=== PATIENT | female | born 2000 | race Caucasian/White ===

== ENCOUNTER 2021-10-24 03:07 | Emergency (ER) | payer SELFPAY ==
[~2021-10-24] VITALS: Ht 170.2 cm; Wt 68.2 kg
[2021-10-24 03:14] VITALS: TEMP 97.8
[2021-10-24 03:24] LABS: BASO % 0.2 % (0.0-2.0); EOS # 0.2 K/mm3 (0.0-0.7); EOS % 1.5 % (0.0-4.0); GRAN # 8.2 K/mm3 (1.4-6.5); GRAN % 61.7 % (42.2-75.2); HEMATOCRIT 40.4 % (37.0-47.0); HEMOGLOBIN 13.6 g/dl (12.5-16.0); LYMPH % 30.3 % (20.0-51.0); MEAN CELL VOLUME 88 fl (80.0-100.0); MEAN CORPUSCULAR HEMOGLOBIN 30 pg (27-31); MEAN CORPUSCULAR HGB CONC 34 g/dl (33.0-37.0); MEAN PLATELET VOLUME 10.6 fl (7.4-10.4); MONO # 0.8 K/mm3 (0.1-0.6); MONO % 5.9 % (1.7-9.3); PLATELET COUNT 225 K/mm3 (130-400); RED BLOOD COUNT 4.58 M/mm3 (4.10-5.30); REDCELL DISTRIBUTION WIDTH-CV 13.2 % (11.5-14.5)
[2021-10-24 03:43] LABS: BILIRUBIN,TOTAL 0.3 mg/dL (0.2-1.2); CALCIUM 9.3 mg/dL (8.4-10.2); CREATININE, serum 0.68 mg/dL (0.57-1.11); POTASSIUM 3.5 mmol/L (3.5-4.5); TOTAL PROTEIN 6.9 gm/dL (6.2-8.1)
[2021-10-24] MEDS ORDERED: VENTOLIN0.09 MG IH (03:57)
[2021-10-24 04:40] LABS: COLLECTION METHOD CLEAN CATCH
[2021-10-24 04:48] LABS: PH 7 (5-8); SQUAMOUS EPITHELIAL 0-2 /hpf (0-10); URINE APPEARANCE Clear (CLEAR/HAZY); URINE BACTERIA None Seen /hpf (NONE SEEN); URINE BILIRUBIN Negative (NEGATIVE); URINE BLOOD Negative (NEGATIVE); URINE COLOR Straw (YELLOW); URINE GLUCOSE Negative (NEGATIVE); URINE KETONE Negative (NEGATIVE); URINE LEUKOCYTE ESTERASE Negative (NEGATIVE); URINE NITRATE Negative (NEGATIVE); URINE PROTEIN(semi-quant) Negative (NEGATIVE); URINE RBC 0-2 /hpf (0-2); URINE UROBILINOGEN Negative (NEGATIVE)
[2021-10-24 04:48] LABS: C-REACTIVE PROTEIN 0.11 mg/dL (0.00-0.50)
[2021-10-24 05:01] VITALS: BP 108/73; PULSE 80
[2021-10-24] MEDS ORDERED: NORCO 325 MG-51 TAB PO (05:11)
[2021-10-24] MEDS ORDERED: FLEXERIL 1010 MG/TAB PO (05:11)
== END 2021-10-24 05:25 | disposition home or self-care (01) ==
LOC: COL.ER 03:07
PROVIDERS: Emergency Medicine
DX: R10.11 Right upper quadrant pain (principal); D72.829 Elevated white blood cell count, unspecified; F17.210 Nicotine dependence, cigarettes, uncomplicated; Z32.02 Encounter for pregnancy test, result negative; Z28.310 Unvaccinated for COVID-19
CPT/HCPCS: J1885; J2060; J2405; J3010; J7030; Q9967

== ENCOUNTER 2021-10-29 23:48 | Emergency (ER) | payer SELFPAY ==
[~2021-10-29] VITALS: Ht 170.2 cm; Wt 68.2 kg
[~2021-10-29 23:48] MED LIST: FLEXERIL 1010 MG/TAB PO; NORCO 325 MG-51 TAB PO; VENTOLIN0.09 MG IH
[2021-10-29 23:56] VITALS: TEMP 98.7
[2021-10-30 01:20] LABS: BASO % 0.3 % (0.0-2.0); EOS # 0.2 K/mm3 (0.0-0.7); EOS % 1.6 % (0.0-4.0); GRAN # 8.4 K/mm3 (1.4-6.5); GRAN % 61.8 % (42.2-75.2); HEMATOCRIT 38.3 % (37.0-47.0); LYMPH # 3.9 K/mm3 (1.2-3.4); LYMPH % 28.5 % (20.0-51.0); MEAN CELL VOLUME 88 fl (80.0-100.0); MEAN CORPUSCULAR HEMOGLOBIN 30 pg (27-31); MEAN CORPUSCULAR HGB CONC 34 g/dl (33.0-37.0); MEAN PLATELET VOLUME 10.6 fl (7.4-10.4); MONO % 7.5 % (1.7-9.3); PLATELET COUNT 186 K/mm3 (130-400); RED BLOOD COUNT 4.34 M/mm3 (4.10-5.30); REDCELL DISTRIBUTION WIDTH-CV 13.2 % (11.5-14.5)
[2021-10-30 01:35] LABS: ANION GAP 13 mmol/L (7-16); BLOOD UREA NITROGEN 5 mg/dL (7-19); CALCIUM 8.7 mg/dL (8.4-10.2); CARBON DIOXIDE 19 mmol/L (22-29); CHLORIDE 111 mmol/L (98-107); CREATININE, serum 0.68 mg/dL (0.57-1.11); GLUCOSE 110 mg/dL (70-99); POTASSIUM 3.3 mmol/L (3.5-4.5); SODIUM 143 mmol/L (136-145)
[2021-10-30 01:44] LABS: TROPONIN-I < 0.010 ng/mL (0.00-0.033)
[2021-10-30 02:35] VITALS: BP 145/81; PULSE 85
== END 2021-10-30 02:35 | disposition home or self-care (01) ==
LOC: COL.ER 23:48
PROVIDERS: Emergency Medicine
DX: J45.901 Unspecified asthma with (acute) exacerbation (principal); D72.829 Elevated white blood cell count, unspecified; Z28.310 Unvaccinated for COVID-19
CPT/HCPCS: J8540

== ENCOUNTER 2021-11-07 23:50 | Emergency (ER) | payer SELFPAY ==
[~2021-11-07] VITALS: Ht 172.7 cm; Wt 68.2 kg
[2021-11-08 00:03] VITALS: TEMP 98
[2021-11-08 01:34] VITALS: BP 125/75; PULSE 71
== END 2021-11-08 01:37 | disposition home or self-care (01) ==
LOC: COL.ER 23:50
DX: S50.11XA Contusion of right forearm, initial encounter (principal); Z28.310 Unvaccinated for COVID-19; W23.1XXA Caught, crushed, jammed, or pinched between stationary objects, initial encounter

== ENCOUNTER 2021-11-13 00:03 | Emergency (ER) | payer SELFPAY ==
[~2021-11-13] VITALS: Ht 170.2 cm; Wt 68.2 kg
[2021-11-13 00:22] VITALS: TEMP 98.2
[2021-11-13 00:51] LABS: COLLECTION METHOD CLEAN CATCH
[2021-11-13 00:53] LABS: BASO # 0.1 K/mm3 (0.0-0.2); BASO % 0.3 % (0.0-2.0); EOS # 0.2 K/mm3 (0.0-0.7); EOS % 1.5 % (0.0-4.0); GRAN # 10.4 K/mm3 (1.4-6.5); GRAN % 66.5 % (42.2-75.2); HEMOGLOBIN 13.8 g/dl (12.5-16.0); LYMPH # 4.1 K/mm3 (1.2-3.4); LYMPH % 25.8 % (20.0-51.0); MEAN CELL VOLUME 91 fl (80.0-100.0); MEAN CORPUSCULAR HEMOGLOBIN 30 pg (27-31); MEAN CORPUSCULAR HGB CONC 33 g/dl (33.0-37.0); MEAN PLATELET VOLUME 10.4 fl (7.4-10.4); MONO # 0.9 K/mm3 (0.1-0.6); MONO % 5.5 % (1.7-9.3); PLATELET COUNT 229 K/mm3 (130-400); RED BLOOD COUNT 4.63 M/mm3 (4.10-5.30); REDCELL DISTRIBUTION WIDTH-CV 13.6 % (11.5-14.5)
[2021-11-13 00:58] LABS: MUCOUS Present (NOT PRESENT); PH 6 (5-8); SQUAMOUS EPITHELIAL None Seen /hpf (0-10); URINE APPEARANCE Clear (CLEAR/HAZY); URINE BACTERIA None Seen /hpf (NONE SEEN); URINE BLOOD 1+ (NEGATIVE); URINE COLOR Straw (YELLOW); URINE GLUCOSE Negative (NEGATIVE); URINE KETONE Negative (NEGATIVE); URINE NITRATE Negative (NEGATIVE); URINE PROTEIN(semi-quant) Negative (NEGATIVE); URINE UROBILINOGEN Negative (NEGATIVE)
[2021-11-13 01:10] LABS: ALANINE AMINOTRANSFERASE 15 U/L (0-55); ALKALINE PHOSPHATASE 67 U/L (40-150); ANION GAP 11 mmol/L (7-16); AST,SGOT 18 U/L (5-34); BILIRUBIN,TOTAL 0.2 mg/dL (0.2-1.2); BLOOD UREA NITROGEN 6 mg/dL (7-19); CALCIUM 8.7 mg/dL (8.4-10.2); CARBON DIOXIDE 18 mmol/L (22-29); CHLORIDE 116 mmol/L (98-107); CREATININE, serum 0.74 mg/dL (0.57-1.11); GLUCOSE 90 mg/dL (70-99); POTASSIUM 3.7 mmol/L (3.5-4.5); SODIUM 145 mmol/L (136-145)
[2021-11-13 01:17] LABS: ALCOHOL(ethanol),MEDICAL 88 mg/dL (0-10); TRICYCLIC ANTIDEPRESS URINE NEGATIVE
[2021-11-13 01:20] LABS: ACETAMINOPHEN < 1.0 ug/mL (10-30); SALICYLATE < 5.0 mg/dL (15.0-30.0)
[2021-11-13 05:27] VITALS: BP 114/68; PULSE 68
== END 2021-11-13 05:27 | disposition home or self-care (01) ==
LOC: COL.ER 00:03
PROVIDERS: Emergency Medicine
DX: F10.929 Alcohol use, unspecified with intoxication, unspecified (principal); F17.210 Nicotine dependence, cigarettes, uncomplicated; Z28.310 Unvaccinated for COVID-19; Z59.00 Homelessness unspecified; Y90.4 Blood alcohol level of 80-99 mg/100 ml
CPT/HCPCS: J3411; J7030